=== PATIENT | male | born 1970 | race Caucasian/White ===

== ENCOUNTER 2022-07-11 10:39 | Emergency (ER) | payer OTHER, SELFPAY ==
--- NOTE | ~2022-07-11 | XR_ITS ---
XR foot LT min 3V 07/11/2022 11:06 INDICATION: Left foot pain PROCEDURE: 4 views left foot COMPARISON: 11/26/2007 FINDINGS: Fracture, dislocation or subluxation is not identified. Lisfranc joint intact. The soft tis sues appear within normal limits. No foreign bodies are identified. IMPRESSION: 1: NO ACUTE BONE OR JOINT ABNORMALITY IDENTIFIED. Reviewed, dictated and finalized at location A. [employer]ER
[2022-07-11 10:55] VITALS: BP 124/98; PULSE 62; RESP 16; TEMP 36.3; O2SAT 100
--- NOTE | 2022-07-11 12:03 | PC.NURSE ---
Pt cussing and verbally aggressive due to sick people in waiting area w/ N/V. Pt states I am not going to get sick from being around people that are fucking throwing up. I have cancer, I am not going to stay here and get sick. This is fucking ridiculous. 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
== END 2022-07-11 12:03 | disposition left against medical advice (07) ==
PROVIDERS: Emergency Provider Emergency Medicine; PCP Emergency Medicine
DX: S99.922A Unspecified injury of left foot, initial encounter (principal); W20.8XXA Other cause of strike by thrown, projected or falling object, initial encounter
CPT/HCPCS: 73630; 99199